=== PATIENT | female | born 1950 | race Caucasian/White ===

== ENCOUNTER 2022-12-28 11:01 | Outpatient (OUT) | payer MEDICARE, SELFPAY ==
--- NOTE | 2022-12-28 11:05 | US_ITS ---
The [address] [address] Patient Name: MARGOT DE LA O MRN: [id number] date: 1950 Sex: F Assigned Patient Location: US Current Patient Location: US Accession/Order Number: [id number] Exam Date: 12/28/2022 11:06 Report Date: 12/28/2022 17:49 At the request of: NON-STAFF PHYSICIAN Procedure: US renal BI EXAMINATION: US renal BI HISTORY: Renal cyst N28.1 COMPARISON: 02/23/2020 TECHNIQUE: Ultrasound examination was performed of the bladder. FINDINGS: Right Kidney: Surgically absent Left Kidney: Normal in size and contour. Area of anechoic echogenicity in the lower pole measuring 5.0 x 4.3 x 4.2 cm, simple cyst. The cortex measures 1.5 cm Height: 6.3 cm Length: 12.9 cm Width: 5.4 cm Urinary bladder is unremarkable with a volume of 266 mL US/US renal BI IMPRESSION: 5 cm cyst lower pole of the left kidney Electronically authenticated by: GIANCARLO SINGER Date: 12/28/2022 17:49
== END 2022-12-28 11:02 | disposition home or self-care (01) ==
LOC: US 11:01
PROVIDERS: PCP Family Medicine
DX: N28.1 Cyst of kidney, acquired (principal)
CPT/HCPCS: 76775

== ENCOUNTER 2024-01-16 09:56 | Outpatient (OUT) | payer MEDICARE, OTHER, SELFPAY ==
--- NOTE | 2024-01-16 10:01 | US_ITS ---
[address] [address] Patient Name: MARGOT DE LA O MRN: [id number] date: 1950 Sex: F Assigned Patient Location: US Current Patient Location: US Accession/Order Number: [id number] Exam Date: 01/16/2024 10:02 Report Date: 01/16/2024 13:01 At the request of: MIRIAN BRISCOE Procedure: US renal BI EXAMINATION: US renal BI HISTORY: Solitary Kidney, Multiple Renal Cyst COMPARISON: No relevant comparison available. TECHNIQUE: Ultrasound examination was performed of the bladder. FINDINGS: Right Kidney: Remote nephrectomy Left Kidney: Normal in size, contour and cortical echotexture. The cortex measures 1.3 cm. Areas of anechoic echogenicity measuring up to 4.9 cm, simple cysts. No solid cortical mass, nephrolithiasis or hydronephrosis. Height: 6.83 cm Length: 11.40 cm Width: 5.92 cm Urinary bladder measures 3.6 x 6.2 x 4.1 cm with volume of 64 mL US/US renal BI IMPRESSION: Multiple left renal cysts measuring up to 4.9 cm Electronically authenticated by: GIANCARLO SINGER Date: 01/16/2024 13:01
== END 2024-01-16 09:57 | disposition home or self-care (01) ==
LOC: US 09:56
PROVIDERS: PCP Family Medicine; Visit Provider Physician Assistant
DX: Q60.0 Renal agenesis, unilateral (principal); Q61.02 Congenital multiple renal cysts
CPT/HCPCS: 76775